=== PATIENT | male | born 1945 | race Caucasian/White ===

== ENCOUNTER 2018-01-02 10:40 | Outpatient (CLI) | payer BC ==
--- NOTE | 2018-01-02 12:31 | RAD ---
PA AND LATERAL CHEST: History: 72-year-old male with history of possible pneumonia. Comparison: 11-08-17 FINDINGS: There is a focal area of thickening of the fifth anterolateral left rib which may represent some type of exostosis. Heart size within normal limits. The right lung is clear. Atherosclerosis of the aorta . IMPRESSION: Stable left chest. Possible exostosis left anterolateral rib. No pneumonia, edema, pleural effusion o r other acute process. POS: [facility]
== END 2018-01-02 10:41 | disposition home or self-care (01) ==
LOC: BICRAD 10:40
PROVIDERS: ATTEND Allergy & Immunology
DX: J18.9 Pneumonia, unspecified organism (principal)
CPT/HCPCS: 71046

== ENCOUNTER 2018-05-28 12:23 | Outpatient (CLI) | payer BC ==
--- NOTE | 2018-05-28 13:09 | CT ---
Noncontrast enhanced CT chest. HISTORY: Chronic cough for [address] images of the chest performed. Coronal and sagittal reconstruction images per formed. Images demonstrate areas of extensive bibasilar airspace opacities in both lung bases. Associated vol ume loss also seen in the lung bases. There is extensive adjacent correlated thickening and and dilatation of the lower lobe bronchi compatible with bronchiolectasis. Old healed left sixth rib fractures seen. Multiple left hepatic lobe cysts are present. IMPRESSION: Chronic lung base changes as described above.
== END 2018-05-28 12:24 | disposition home or self-care (01) ==
LOC: BICCT 12:23
PROVIDERS: ATTEND Internal Medicine
DX: J45.909 Unspecified asthma, uncomplicated (principal); R91.1 Solitary pulmonary nodule; R91.8 Other nonspecific abnormal finding of lung field
CPT/HCPCS: 71250

== ENCOUNTER 2019-07-18 09:57 | Outpatient (CLI) | payer MEDICARE, BC ==
--- NOTE | 2019-07-18 12:31 | CT ---
CT CHEST WITHOUT CONTRAST: Date: 07/18/2019 INDICATION: Pulmonary nodule. Cough. Comparison made to chest CT of 05/28/2018. FINDINGS: Review of lung smith show mild stranding in the bases. The multinodular air space opacity seen in th e lower lobes on the prior study is no longer present. Findings would indicate a previous inflammator y process which has resolved. There is an 8 mm nodule in the right lung base abutting the diaphragm which appears stable. There is another right lower lobe nodule measuring in the 3-4 mm range seen on image 115 axial which appears s table. No other pulmonary mass or nodule. Deformity of left lower anterior rib cage is stable, indicating ol d fracture. Heart and mediastinum unremarkable. Images through upper abdomen again show hepatic cystic lesions which are stable. IMPRESSION: 1. Two nodules in the right lower lobe appear stable as described above. 2. There are chronic lung parenchymal changes with stranding and interstitial prominence in the lung bases are noted. POS: [facility]
== END 2019-07-18 09:58 | disposition home or self-care (01) ==
LOC: BICCT 09:57
PROVIDERS: ATTEND Internal Medicine
DX: R91.8 Other nonspecific abnormal finding of lung field (principal); J47.9 Bronchiectasis, uncomplicated; R05 Cough
CPT/HCPCS: 71250